=== PATIENT | female | born 1950 | race Two or more races ===

== ENCOUNTER 2022-11-22 08:02 | Outpatient (CLI) | payer OTHER | END 2022-11-22 08:09 | disposition home or self-care (01) | LOC: NUCLEAR 08:02 | PROVIDERS: ATTEND Physical Medicine & Rehabilitation | DX: I70.219 Atherosclerosis of native arteries of extremities with intermittent claudication, unspecified extremity (principal) ==

== ENCOUNTER 2022-11-24 08:05 | Outpatient (CLI) | payer OTHER | END 2022-11-24 08:10 | disposition home or self-care (01) | LOC: NUCLEAR 08:05 | PROVIDERS: ATTEND Physical Medicine & Rehabilitation | DX: I87.2 Venous insufficiency (chronic) (peripheral) (principal) ==

== ENCOUNTER 2023-03-29 07:33 | Outpatient (CLI) | payer OTHER | END 2023-03-29 07:35 | disposition home or self-care (01) | LOC: NUCLEAR 07:33 | PROVIDERS: ATTEND Physical Medicine & Rehabilitation | DX: M06.4 Inflammatory polyarthropathy (principal) ==